=== PATIENT | male | born 1950 | race Caucasian/White ===

== ENCOUNTER 2024-02-17 07:00 | Outpatient (CLI) | payer MEDICARE, OTHER ==
--- NOTE | 2024-02-17 14:16 | XRAY Report ---
PROCEDURE: Shoulder 2+V LT INDICATIONS: PAIN IN LEFT SHOULDER TECHNIQUE: 3 views of the shoulder were acquired. COMPARISON: None. FINDINGS: Bones: Mild degenerative changes, no acute displaced fracture or dislocation. Soft tissues: No suspicious calcifications. IMPRESSION: No acute radiographic abnormality. If there is high concern for further derangement, consider MRI evaluation. Reviewed by: Pramod Yeh MD on 02/17/2024 2:15 PM PDT Approved by: Pramod Yeh MD on 02/17/2024 2:15 PM PDT Station ID: [id number]
== END 2024-02-17 23:59 | disposition home or self-care (01) ==
LOC: DI.S 07:00
PROVIDERS: ATTEND Registered Nurse
DX: M25.512 Pain in left shoulder (principal)